=== PATIENT | male | born 1960 | race Caucasian/White ===

== ENCOUNTER 2017-06-08 10:20 | Emergency (ER) | payer OTHER, MEDICARE, MEDICAID ==
[~2017-06-08] VITALS: Ht 152.4 cm; Wt 74.8 kg
[2017-06-08 12:15] VITALS: BP 138/91
== END 2017-06-08 12:15 | disposition home or self-care (01) ==
LOC: ED 10:20
DX: M23.91 Unspecified internal derangement of right knee (principal)

== ENCOUNTER 2017-09-16 12:06 | Emergency (ER) | payer OTHER, MEDICARE, MEDICAID ==
[~2017-09-16] VITALS: Ht 152.4 cm; Wt 76.7 kg
[2017-09-16 12:17] VITALS: Ht 152.4 cm; Wt 76.7 kg
[2017-09-16 15:58] VITALS: BP 149/84
== END 2017-09-16 15:58 | disposition home or self-care (01) ==
LOC: ED 12:06
DX: S42.402A Unspecified fracture of lower end of left humerus, initial encounter for closed fracture (principal); G40.909 Epilepsy, unspecified, not intractable, without status epilepticus; W19.XXXA Unspecified fall, initial encounter; Y93.89 Activity, other specified; Y92.89 Other specified places as the place of occurrence of the external cause; Y99.8 Other external cause status
CPT/HCPCS: Q0092